=== PATIENT | female | born 1935 ===

== ENCOUNTER → 2018-10-30 19:18 | Outpatient (ROUT) | payer MEDICARE, OTHER, SELFPAY ==
[2018-10-30 19:34] LABS: INR 2.4 (0.9-1.3); Prothrombin Time 28.4 SECONDS (10.1-12.7)
[2018-10-30 19:38] LABS: Add Manual Diff / Slide Review NO; Basophils Absolute Auto 100 /uL (0-100); Basophils Percent Auto 1.1 % (0-2); Eosinophils Absolute Auto 100 /uL (0-450); Eosinophils Percent Auto 2.1 % (2-4); Hemoglobin 9.5 g/dL (12.0-16.0); Lymphocytes Absolute Auto 1600 /uL (1100-4500); Lymphocytes Percent Auto 24.4 % (25-40); Mean Corpuscular HGB Conc 32.9 % (30-36); Mean Corpuscular Hemoglobin 26.3 PG (26-34); Mean Corpuscular Volume 79.8 fL (80-100); Monocytes Absolute Auto 700 /uL (0-900); Monocytes Percent Auto 10.8 % (3-14); Neutrophils Absolute Auto 3900 /uL (1500-7000); Neutrophils Percent Auto 61.6 % (50-75); Platelet Count 338 X10^3/uL (150-400); Red Blood Cell Count 3.63 X10^6/uL (4.0-5.2); Red Cell Distribution Width 18.7 % (11.6-14.8); White Blood Cell Count 6.4 X10^3/uL (4.5-11.0)
[2018-10-30 19:45] LABS: Alanine Aminotransferase 9 IU/L (9-52); Albumin 3.6 g/dL (3.5-5.0); Albumin Globulin Ratio 1.2 (1.0-2.8); Alkaline Phosphatase 80 U/L (38-126); Aspartate Aminotransferase 31 IU/L (14-36); BUN Creatinine Ratio 23.3 (6-22); Bilirubin Total 0.4 mg/dL (0.2-1.3); Blood Urea Nitrogen 21 mg/dL (7-17); Calcium 8.9 mg/dL (8.4-10.2); Carbon Dioxide 25 mmol/L (22-32); Chloride 105 mmol/L (98-107); Cholesterol 204 mg/dL (140-199); Estimated Glomerular Filt Rate 59.8 mL/min (>60); Glucose 120 mg/dL (80-110); HDL Cholesterol 87 mg/dL (40-60); HEMOLYSIS 15 (0-50); LDL Cholesterol Calculated 100 mg/dL (<100); Potassium 4.3 mmol/L (3.4-5.1); Sodium 139 mmol/L (137-145); Total Protein 6.6 g/dL (6.3-8.2); Triglycerides 85 mg/dL (35-150)
[2018-10-30 19:50] LABS: Erythrocyte Sedimentation Rate 62 MM/HR (0-20)
[2018-10-30 20:02] LABS: Hemoglobin A1C% w Est Avg Glu 5.8 % (4.0-6.0)
== END ==
PROVIDERS: Visit Provider Family Medicine
DX: I48.91 Unspecified atrial fibrillation (principal); D64.9 Anemia, unspecified; Z13.6 Encounter for screening for cardiovascular disorders; Z13.1 Encounter for screening for diabetes mellitus; Z13.228 Encounter for screening for other metabolic disorders
CPT/HCPCS: 36415; 80053; 80061; 83036; 85025; 85610; 85651

== ENCOUNTER → 2018-11-01 19:28 | Outpatient (ROUT) | payer MEDICARE, OTHER, SELFPAY ==
[2018-11-01 20:33] LABS: Rheumatoid Factor < 8.6 IU/mL (<12.0)
[2018-11-01 20:44] LABS: HEMOLYSIS < 15 (0-50); Total Iron Binding Capacity 355 ug/dL (265-497); Transferrin 265 mg/dL (206-381)
[2018-11-01 20:55] LABS: Iron 26 ug/dL (37-170); Percent Iron Saturation 7 % (15-50)
[2018-11-01 21:05] LABS: Ferritin 10.2 ng/mL (11.1-264)
[2018-11-01 21:36] LABS: Folate > 20.0 ng/mL (2.76-20.0); Vitamin B12 764 pg/mL (239-931)
[2018-11-06 19:48] LABS: ANA Screen, IFA Positive (Negative)
[2018-11-07 12:16] LABS: DNA (DS) Antibody 13 IU/mL (< 5)
== END ==
PROVIDERS: Visit Provider Family Medicine
DX: R70.0 Elevated erythrocyte sedimentation rate (principal); D64.9 Anemia, unspecified
CPT/HCPCS: 36415; 82607; 82728; 82746; 83540; 83550; 86038; 86225; 86226; 86430